=== PATIENT | female | born 1955 | race Caucasian/White ===

== ENCOUNTER 2019-01-15 12:00 | Day surgery (SDC) | payer OTHER ==
[2019-01-15] MEDS ORDERED: LIDOCAINE 2% (SDV) 5 ML INJ (12:54)
[2019-01-15] MEDS ORDERED: MIDAZOLAM 1 MG/ML 2 ML INJ (12:54)
[2019-01-15] MEDS ORDERED: PROPOFOL 20 ML (12:54)
== END 2019-01-15 14:03 | disposition home or self-care (01) ==
LOC: GIL 12:00
DX: Z12.11 Encounter for screening for malignant neoplasm of colon (principal); K29.60 Other gastritis without bleeding; K64.8 Other hemorrhoids; E78.5 Hyperlipidemia, unspecified; E11.9 Type 2 diabetes mellitus without complications
CPT/HCPCS: 43239; 88305; 88312; 88313